=== PATIENT | female | born 1940 | race Two or more races ===

== ENCOUNTER 2024-02-23 09:37 | Inpatient (IN) | payer OTHER ==
[~2024-02-23] VITALS: Ht 152.4 cm; Wt 46.3 kg
--- NOTE | 2024-02-23 10:48 | ED.PDOC ---
History of Present Illness HPI Comments 83 y/o F is BIBA for c/o abdominal and generalized pain since 11/29/2023. Patient is a poor historian and endorses on having pain, chronically, since the beginning of November in addition to commenting on her "" at home being no longer capable of "caring for [her]." She reports no additional relevant or pertinent Hx, aside from a PMHx of HTN, CKF, MN, and former tobacco and EtOH. Denies having any nausea, vomiting, diarrhea, or other associated symptoms at this time. Chief Complaint: General Weakness Time Seen by MD: 10:15 Reviewed Notes: Nurses Notes, Office Manager Executive Assistant Notes, Medications, Allergies Allergies: Coded Allergies: NO KNOWN ALLERGIES (Unverified , 02/23/24) Information Source: Patient Mode of Arrival: EMS Severity: Moderate Timing: Hours Duration: Since onset Prehospital treatment: None Past Medical History PAST MEDICAL HISTORY: CKF, HTN, MN Surgical History: Cholecystectomy, Tonsillectomy DIRECTOR NETWORK DEVELOPMENT History: Denies all DIRECTOR NETWORK DEVELOPMENT Hx Family History Family History: Unknown Social History Smoker: Quit Greater Than 1 Year Alcohol: Sober Drugs: Denies Drug Use Lives In: Home, Assisted Care (by spouse) Constitutional: denies: chills, diaphoresis, fatigue, fever, malaise, sweats, weakness, others EENTM: denies: blurred vision, double vision, ear bleeding, ear discharge, ear drainage, ear pain, ear ringing, eye pain, eye redness, hearing loss, mouth pain, mouth swelling, nasal discharge, nose bleeding, nose congestion, nose pain, photophobia, tearing, throat pain, throat swelling, voice changes, others Respiratory: denies: cough, hemoptysis, orthopnea, SOB at rest, shortness of b reath, SOB with excertion, stridor, wheezing, others Cardiovascular: denies: chest pain, dizzy spells, diaphoresis, Dyspnea on exertion, edema, irregular heart beat, left arm pain, lightheadedness, palpitations, PND, syncope, others Gastrointestinal: reports: abdominal pain; denies: abdomen distended, blood streaked bowels, constipated, diarrhea, dysphagia, difficulty swallowing, hematemesis, melena, nausea, poor appetite, poor fluid intake, rectal bleeding, rectal pain, vomiting, others Genitourinary: denies: abnormal vagina bleeding, burning, dyspareunia, dysuria, flank pain, frequency, hematuria, incontinence, pain, , vagina discharge, urgency, others Neurological: denies: dizziness, fainting, headache, left sided numbness, left sided weakness, numbness, paresthesia, pre-existing deficit, right sided numbness, right sided weakness, seizure, speech problems, tingling, tremors, weakness, others Musculoskeletal: reports: others (generalized bodypain ); denies: back pain, gout, joint pain, joint swelling, muscle pain, muscle stiffness, neck pain Integumetry: denies: bruises, change in color, change in hair/nails, dryness, laceration, lesions, lumps, rash, wounds, others Allergic/Immunocompromised: denies: Difficulty Healing, Frequent Infections, Hives, Itching, others Hematologic/Lymphatic: denies: anemia, blood clots, easy bleeding, easy bruising, swollen glands, others Endocrine: denies: excessive hunger, excessive sweating, excessive thirst, excessive urination, flushing, intolerance to cold, intolerance to heat, une xplained weight gain, unexplained weight loss, others Psychiatric: denies: anxiety, bipolar disorder, depression, hopeless, panic disorder, schizophrenia, sleepless, suicidal, others All Other Systems: Reviewed and Negative Physical Exam General Appearance: Moderate Distress HEENT: Pale Conjuntivae (L), Pale Conjuntivae (R), Pharynx Normal, TMs Normal Neck: Full Range of Motion, Non-Tender, Normal, Normal Inspection Respiratory: Chest Non-Tender, Lungs Clear, No Accessory Muscle Use, No Resp iratory Distress, Normal Breath Sounds Cardiovascular: No Edema, No JVD, No Murmur, No Gallop, Normal Peripheral Pulses, Regular Rate/Rhythm Breast Exam: Deferred Gastrointestinal: Diffuse, No Organomegaly, No Pulsatile Mass, Normal Bowel Sounds, Soft, Tenderness Genitalia: Deferred Pelvic: Deferred Rectal: Deferred Extremities: No calf tenderness, Normal capillary refill, Normal inspection, Normal range of motion, Non-tender, No pedal edema Musculoskeletal : Apperance: Normal Neurologic: Alert, key punch operator II-XII nml as Tested, Motor Weakness, Normal Affect, Normal Mood, No Sensory Deficits Cerebellar Function: Normal Reflexes: Normal Skin: Dry, Pallor, Warm Lymphatic: No Adenopathy Was a procedure done? Was a procedure done?: No Differential Dx Considerations may include: chronic pain syndrome, viral syndrome, electrolyte imbalance, gastritis, gastroenteritis, colitis, appendicitis, diverticulitis, acute abdomen X-Ray, Labs, Meds, VS Vital Signs Date Time Temp Pulse Resp B/P (MAP) Pulse Ox O2 Delivery O2 Flow Rate FiO2 02/23/24 13:20 72 16 98 Room Air* 0 21 02/23/24 12:30 98.6 72 18 99/44 (62) 98 98.6 02/23/24 09:38 96.7 67 15 109/76 (87) 96 Lab Test 02/23/24 13:36 02/23/24 12:29 Range/Units White Blood Count 8.3 4.4-10.8 10^3/uL Red Blood Count 5.50 H 4.0-5.20 10^6/uL Hemoglobin 12.8 12.2-16.2 g/dL Hematocrit 40.9 36.0-46.0 % Mean Corpuscular Volume 74.3 L 80.0-100.0 fL Mean Corpuscular Hemoglobin 23.2 L 28.0-32.0 pg Mean Corpuscular Hemoglobin Concent 31.2 L 32.0-36.0 g/dL Red Cell Distribution Width 19.8 H 11.8-14.3 % Platelet Count 383 140-450 10^3/uL Mean Platelet Volume 7.9 6.9-10.8 fL Neutrophils (%) (Auto) 82.6 H 37.0-80.0 % Lymphocytes (%) (Auto) 8.2 L 10.0-50.0 % Monocytes (%) (Auto) 7.8 0.0-12.0 % Eosinophils (%) (Auto) 0.7 0.0-7.0 % Basophils (%) (Auto) 0.7 0.0-2.0 % Neutrophils # (Auto) 6.9 1.6-8.6 10 ^3/uL Lymphocytes # (Auto) 0.7 0.4-5.4 10 ^3/uL Monocytes # (Auto) 0.6 0-1.3 10 ^3/uL Eosinophils # (Auto) 0.1 0-0.8 10 ^3/uL Basophils # (Auto) 0.1 0-0.2 10 ^3/uL Nucleated Red Blood Cells 0.1 % Sodium Level 141 136-145 mmol/L Potassium Level 3.4 L 3.5-5.1 mmol/L Chloride Level 100 98-107 mmol/L Carbon Dioxide Level 28 20-31 mmol/L Anion Gap 13 5-15 Blood Urea Nitrogen 30 H 9-23 mg/dL Creatinine 0.71 0.550-1.02 mg/dL Glomerular Filtration Rate Calc 83 >90 mL/min BUN/Creatinine Ratio 42.3 H 10.0-20.0 Serum Glucose 127 H 74-106 mg/dL Calcium Level 10.1 8.7-10.4 mg/dL Total Bilirubin 0.4 0.2-1.0 mg/dL Aspartate Amino Transferase (AST) 76 H 13-40 U/L Alanine Aminotransferase (ALT) 35 7-40 U/L Alkaline Phosphatase 923 H 46-116 U/L Total Protein 6.7 5.7-8.2 g/dL Albumin 4.2 3.2-4.8 g/dL PROCEDURE(s): ABPL - CT AB PEL WO CON-NO ORAL OR IV IMPRESSION: 1. Nodular soft tissue densities along the right and left posterior bladder wall most notably along the right posterolateral bladder wall measuring 2.2 x 1.8 cm. Findings are concerning for primary bladder malignancy. Correlation with cystoscopy and biopsy is recommended. 2. 9.0 x 7.2 cm soft tissue mass involving the right acetabulum and right ischium with cortical destruction. There is also compression deformity of the L4 vertebral body with cortical destruction. These likely relate to osseous metastatic disease with pathologic fractures. The patient was chemistry panel is within normal limits. The patient's CBC is within normal limits The chemistry panel is within normal limits except for BUN of 30 and a creatini ne of 0.71 The patient was hyperglycemic with 127 We reviewed the patient's findings on the CT scan and the patient does not have a history of bladder cancer in the past. There is a concern that this is metastatic cancer. We are giving the patient has some normal saline to address the patient's blood pressure We did contact [facility] and they have given us authorization to admit the patient is secondary to the fluctuant blood pressure The authorization #[id number] Images Reviewed?: Images reviewed and evaluated by me Time of 1ST Reevaluation: 10:45 Reevaluation 1ST: Unchanged Patient Education/Counseling: Diagnosis, Treatment, Prognosis Family Education/Counseling: No Family Present Departure 1 Departure Time of Disposition: 14:49 Impression: Primary Impression: Generalized weakness Additional Impressions: Hypotension Qualified Codes: I95.9 - Hypotension, unspecified Bladder mass Disposition: ADMITTED INPATIENT Admit to: Tele Condition: Fair Critical Care Note Critical Care Time?: Yes (45 min-critical care time only) Stability Stability form required: Yes Unstable for transfer: Telemetry monitoring (Telemetry monitoring required), ED Physician Assesment (Clinical assesment) Heart Score Heart Score: Heart Score Response (Comments) Value History Moderate Suspicious 1 EKG N/A 0 Age >65 2 Risk Factors >3 or Hx ASHD 2 Troponin N/A 0 Total 5 I personally scribed for LOGAN NEGRETE MD ([email or web address]) on 02/23/24 at 10:48. Electronically submitted by Oscar Lee ([email or web address]). I personally scribed for LOGAN NERGETE MD ([email or web address]) on 02/23/24 at 12:46. Electronically submitted by Oscar Lee ([email or web address]). LOGAN NEGRETE MD Feb 23, 2024 10:48
--- NOTE | 2024-02-23 11:05 | DVH ---
CT ABDOMEN AND PELVIS WITHOUT CONTRAST CLINICAL HISTORY: pain TECHNIQUE: Multiple contiguous axial images of the abdomen and pelvis without intravenous contrast. The images were reformatted degenerate coronal and sagittal reconstructions. All CT scans at this medical facility are performed using dose modulation techniques as appropriate t o a performed exam including the following:Automated exposure control was utilized; adjustment of the MA and/or KV according to patient size; and use of iterative reconstruction technique. Radiation Dose Information: CT Dose: CTDI volume is 5 mGy. Dose-length product is 234 mGy*cm Comparison: None FINDINGS: Evaluation of the abdomen and pelvis is limited without intravenous contrast. Gallbladder is surgically absent. There is a 1.4 cm right hepatic lobe cysts. The pancreas, kidne ys, adrenal glands, and spleen grossly appear within normal limits. There is no free fluid or free ai r. The stomach grossly appears unremarkable. The small and large bowel loops demonstrate normal caliber . There are moderate calcified atherosclerotic changes in the abdominal aorta. The IVC appears within normal limits. There are nodular soft tissue densities along the right and left posterior bladder wall with thin per ipheral wall calcification. Soft tissue nodule in the right posterolateral bladder wall is most notab le measuring 2.2 x 1.8 cm. The uterus is heterogeneous with likely calcified fibroids.. There is no gross evidence of a pelvic mass. There is no free fluid collection. There are emphysematous changes in the lung bases. There is an approximately 9.0 x 7.2 cm soft tissue mass involving the right acetabulum and right isch ium with cortical destruction. There is also compression deformity of the L4 vertebral body with daniella ical destruction. There is chronic wedge compression deformity of the T12 vertebral body. IMPRESSION: 1. Nodular soft tissue densities along the right and left posterior bladder wall most notably along t he right posterolateral bladder wall measuring 2.2 x 1.8 cm. Findings are concerning for primary blad saadia malignancy. Correlation with cystoscopy and biopsy is recommended. 2. 9.0 x 7.2 cm soft tissue mass involving the right acetabulum and right ischium with cortical destr uction. There is also compression deformity of the L4 vertebral body with cortical destruction. These likely relate to osseous metastatic disease with pathologic fractures. HS:Y
[2024-02-23 13:18] LABS: Alanine Aminotransferase 35 U/L (7-40); Albumin 4.2 g/dL (3.2-4.8); Anion Gap 13 (5-15); BUN/Creatinine Ratio 42.3 (10.0-20.0); Calcium 10.1 mg/dL (8.7-10.4); Carbon Dioxide 28 mmol/L (20-31); Chloride 100 mmol/L (98-107); Sodium 141 mmol/L (136-145)
[2024-02-23 13:19] LABS: Bilirubin, Total 0.4 mg/dL (0.2-1.0); Total Protein 6.7 g/dL (5.7-8.2)
[2024-02-23 13:20] VITALS: PULSE 72; RESP 16; O2SAT 98
[2024-02-23 13:20] LABS: Alkaline Phosphatase 923 U/L (46-116); Aspartate Aminotransferase 76 U/L (13-40); Blood Urea Nitrogen 30 mg/dL (9-23); Glucose 127 mg/dL (74-106); Potassium 3.4 mmol/L (3.5-5.1)
[2024-02-23 13:55] LABS: Basophils # (auto) 0.1 10 ^3/uL (0-0.2); Basophils % (auto) 0.7 % (0.0-2.0); Lymphocytes # (auto) 0.7 10 ^3/uL (0.4-5.4)
[2024-02-23 13:57] LABS: Eosinophils # (auto) 0.1 10 ^3/uL (0-0.8); Eosinophils % (auto) 0.7 % (0.0-7.0); Hematocrit 40.9 % (36.0-46.0); Hemoglobin 12.8 g/dL (12.2-16.2); Lymphocytes % (auto) 8.2 % (10.0-50.0); Mean Corpuscular Hemoglobin 23.2 pg (28.0-32.0); Mean Corpuscular Hgb Conc. 31.2 g/dL (32.0-36.0); Mean Corpuscular Volume 74.3 fL (80.0-100.0); Monocytes # (auto) 0.6 10 ^3/uL (0-1.3); Monocytes % (auto) 7.8 % (0.0-12.0); Neutrophils # (auto) 6.9 10 ^3/uL (1.6-8.6); Neutrophils % (auto) 82.6 % (37.0-80.0); Nucleated Red Blood Cells % 0.1 %; Platelet Count (auto) 383 10^3/uL (140-450); Red Cell Distribution Width 19.8 % (11.8-14.3); White Blood Cell 8.3 10^3/uL (4.4-10.8)
[2024-02-23] MEDS: SODIUM CHLORIDE 0.9% 1,000 ML IV ONE (14:56)
[2024-02-23] MEDS ORDERED: MORPHINE SULFATE INJ 2 MG/ml SYRG IV PRN (17:00)
[2024-02-23] MEDS ORDERED: NITROGLYCERIN 0.4 MG SL TAB SL PRN (17:00)
[2024-02-23] MEDS ORDERED: DOCUSATE SOD 100 MG CAP PO PRN (17:00)
[2024-02-23] MEDS ORDERED: ONDANSETRON HCL 4 MG/2 ML VIAL IV PRN (17:00)
[2024-02-23] MEDS ORDERED: ACETAMINOPHEN 325 MG TAB PO PRN (17:00)
[2024-02-23] MEDS ORDERED: MET25T PO (17:28)
[2024-02-23] MEDS ORDERED: SERT25TA28 PO (17:28)
[2024-02-23] MEDS ORDERED: LISI40TA16 PO (17:28)
[2024-02-23] MEDS ORDERED: SIMV40TA18 PO (17:28)
[2024-02-23] MEDS ORDERED: FURO20TA4 PO (17:28)
[2024-02-23] MEDS ORDERED: GAB100C PO (17:28)
[2024-02-23] MEDS: POTASSIUM EFFERVESENT TAB 25 MEQ PO ONE (17:38)
[2024-02-23] MEDS: SODIUM CHLORIDE 0.9% 1,000 ML IV SCH (17:39)
--- NOTE | 2024-02-23 17:39 | DVHHP2 ---
History of Present Illness Reason for Visit: Weakness History of Present Illness Martha Jimenez is a 83-year-old female with past medical history of hypertension, CKD, HI over 15 years ago, skin cancer on her left leg that was removed 2 years ago, cholecystectomy, and tonsillectomy who presents to the ED for generalized weakness. Patient reports that that she is unable to walk and that she has progressively gotten weaker over the last several months. She also reports that she was seeing her primary and they advised her to come into the ER for evaluation. Patient also reports that she has not been voiding for the last 2 days and she has not been drinking any fluids. Patient also reports that she had an oncologist at [facility] but no longer seeing one. Patient denies any fevers, chills, chest pain, shortness of breath, nausea, vomiting, diarrhea, lightheadedness, dizziness, and shortness of reath. Cardiovascular: HTN, HI Renal/: Chronic renal failure Past Medical History CA Past Surgical History: Cholecystectomy, Tonsillectomy Family History: None Smoke: Quit ALCOHOL: none Drugs: None Lives: with Family Domestic Violence: Neg Review of Systems Constitutional: Yes: Weakness; No: Fever, Chills, Sweats, Malaise, Other Eyes: No: Pain, Vision change, Conjunctivae inflammation, Eyelid inflammation, Other, Redness Respiratory: No: Cough, Dry, Shortness of breath, SOB with excertion, Wheezing, Hemoptysis, Pleuritic Pain, Sputum, Wheezing, Other Cardiovascular: No: Chest Pain, Palpitations, Orthopnea, Paroxysmal Noc. Dyspnea, Edema, Lt Headedness, Other Gastrointestinal: No: Nausea, Vomiting, Abdominal Pain, Diarrhea, Constipation, Melena, Hematochezia, Other Genitourinary: No Dysuria, No Frequency, No Incontinence, No Hematuria; Retention; No Other Skin: Bruising; No: Rash, Lesions, Jaundice, Other Neurological: No: Weakness, Numbness, Incoordination, Change in speech, Confusion, Seizures, Other Allergies: Coded Allergies: NO KNOWN ALLERGIES (Unverified , 02/23/24) Exam Vital Signs Vital Signs Date Time Temp Pulse Resp B/P (MAP) Pulse Ox O2 Delivery O2 Flow Rate FiO2 02/23/24 14:42 59 16 120/58 (78) 98 02/23/24 13:20 Room Air* 0 21 02/23/24 12:30 98.6 98.6 General Appearance: Alert, Oriented X3, Cooperative, No acute distress HEENT: Atraumatic, PERRLA, Mucous membr. moist/pink Respiratory: Clear to auscultation, Normal air movement Cardiovascular: Regular rate, Normal S1, Normal S2, No murmurs Abdominal: Normal bowel sounds, Soft, No tenderness, No hepatospenomegaly, No masses Extremities: No clubbing, No cyanosis, No edema, Normal pulses, No tenderness/swelling Skin: No breakdown Neuro: Normal speech, Normal tone, Sensation intact Psych/Mental Status: Mental status NL, Mood NL Labs/Xrays Labs Test 02/23/24 13:36 02/23/24 12:29 Range/Units White Blood Count 8.3 4.4-10.8 10^3/uL Red Blood Count 5.50 H 4.0-5.20 10^6/uL Hemoglobin 12.8 12.2-16.2 g/dL Hematocrit 40.9 36.0-46.0 % Mean Corpuscular Volume 74.3 L 80.0-100.0 fL Mean Corpuscular Hemoglobin 23.2 L 28.0-32.0 pg Mean Corpuscular Hemoglobin Concent 31.2 L 32.0-36.0 g/dL Red Cell Distribution Width 19.8 H 11.8-14.3 % Platelet Count 383 140-450 10^3/uL Mean Platelet Volume 7.9 6.9-10.8 fL Neutrophils (%) (Auto) 82.6 H 37.0-80.0 % Lymphocytes (%) (Auto) 8.2 L 10.0-50.0 % Monocytes (%) (Auto) 7.8 0.0-12.0 % Eosinophils (%) (Auto) 0.7 0.0-7.0 % Basophils (%) (Auto) 0.7 0.0-2.0 % Neutrophils # (Auto) 6.9 1.6-8.6 10 ^3/uL Lymphocytes # (Auto) 0.7 0.4-5.4 10 ^3/uL Monocytes # (Auto) 0.6 0-1.3 10 ^3/uL Eosinophils # (Auto) 0.1 0-0.8 10 ^3/uL Basophils # (Auto) 0.1 0-0.2 10 ^3/uL Nucleated Red Blood Cells 0.1 % Sodium Level 141 136-145 mmol/L Potassium Level 3.4 L 3.5-5.1 mmol/L Chloride Level 100 98-107 mmol/L Carbon Dioxide Level 28 20-31 mmol/L Anion Gap 13 5-15 Blood Urea Nitrogen 30 H 9-23 mg/dL Creatinine 0.71 0.550-1.02 mg/dL Glomerular Filtration Rate Calc 83 >90 mL/min BUN/Creatinine Ratio 42.3 H 10.0-20.0 Serum Glucose 127 H 74-106 mg/dL Calcium Level 10.1 8.7-10.4 mg/dL Total Bilirubin 0.4 0.2-1.0 mg/dL Aspartate Amino Transferase (AST) 76 H 13-40 U/L Alanine Aminotransferase (ALT) 35 7-40 U/L Alkaline Phosphatase 923 H 46-116 U/L Total Protein 6.7 5.7-8.2 g/dL Albumin 4.2 3.2-4.8 g/dL CT ABDOMEN AND PELVIS WITHOUT CONTRAST CLINICAL HISTORY: pain TECHNIQUE: Multiple contiguous axial images of the abdomen and pelvis without intravenous contrast. The images were reformatted degenerate coronal and sagittal reconstructions. All CT scans at this medical facility are performed using dose modulation techniques as appropriate to a performed exam including the following:Automated exposure control was utilized; adjustment of the MA and/or KV according to patient size; and use of iterative reconstruction technique. Radiation Dose Information: CT Dose: CTDI volume is 5 mGy. Dose-length product is 234 mGy*cm Comparison: None FINDINGS: Evaluation of the abdomen and pelvis is limited without intravenous contrast. Gallbladder is surgically absent. There is a 1.4 cm right hepatic lobe cysts. The pancreas, kidneys, adrenal glands, and spleen grossly appear within normal limits. There is no free fluid or free air. The stomach grossly appears unremarkable. The small and large bowel loops demonstrate normal caliber. There are moderate calcified atherosclerotic changes in the abdominal aorta. The IVC appears within normal limits. There are nodular soft tissue densities along the right and left posterior bladder wall with thin peripheral wall calcification. Soft tissue nodule in the right posterolateral bladder wall is most notable measuring 2.2 x 1.8 cm. The uterus is heterogeneous with likely calcified fibroids.. There is no gross evidence of a pelvic mass. There is no free fluid collection. There are emphysematous changes in the lung bases. There is an approximately 9.0 x 7.2 cm soft tissue mass involving the right acetabulum and right ischium with cortical destruction. There is also compression deformity of the L4 vertebral body with cortical destruction. There is chronic wedge compression deformity of the T12 vertebral body. IMPRESSION: 1. Nodular soft tissue densities along the right and left posterior bladder wall most notably along the right posterolateral bladder wall measuring 2.2 x 1.8 cm. Findings are concerning for primary bladder malignancy. Correlation with cystoscopy and biopsy is recommended. 2. 9.0 x 7.2 cm soft tissue mass involving the right acetabulum and right ischium with cortical destruction. There is also compression deformity of the L4 vertebral body with cortical destruction. These likely relate to osseous metastatic disease with pathologic fractures. Assessment/Plan Assessment/Plan Assessment/Plan: Acute generalized weakness suspected metastatic disease to be ruled out Abd US Alcohol level sanchez cath - urinary retention acute hepatitis panel CEA marker CT A/P UA labs am labs antiemetics pain mgmt renal US Hypokalemia replete lytes labs elevated AST and ALP GI cx Nodular soft tissue densities along the right and left posterior bladder wall most notably along the right posterolateral bladder wall measuring 2.2 x 1.8 cm. Urology cx 9.0 x 7.2 cm soft tissue mass involving the right acetabulum and right ischium with cortical destruction. There is also compression deformity of the L4 vertebral body with cortical destruction. Oncology cx outpatient F/U with [facility] Chronic HTN continue home meds Chronic CKD monitor continue home meds Hx of HI monitor on tele FEN/PPX Diet IVf DVT ppx - lovenox PUD ppx - not indicated no history of GERD or GI bleed Admit to tele Home medications reconciled Discussed plan of care with patient and nurse Plan discussed with: Patient My Orders Orders - LYSSA TEJEDA PERSONAL LINES ADVISOR Procedure Category Date Status Time * Hematology/Oncology CONS 02/23/24 Transmitted Consult 16:48 * Urology Consult CONS 02/23/24 Transmitted 16:48 * Gi [facility] Dramatic Arts Historian CONS 02/23/24 Transmitted 16:48 Carcinoembryonic LAB 02/23/24 Logged Antigen 16:48 Acute Hepatitis Panel LAB 02/23/24 Logged 16:48 Blood Alcohol LAB 02/23/24 Logged 16:48 Drug Screen LAB 02/23/24 Logged 16:48 Insert/Manage Urinary LUANNE 02/23/24 In Process Catheter 16:48 Abdomen Complete US 02/23/24 Logged Sonogram 16:48 Admit ADMIT 02/23/24 Transmitted 16:53 Allergies LUANNE 02/23/24 In Process 16:53 Code Status CODE 02/23/24 Transmitted 16:53 Renal DIET 02/23/24 Transmitted Standard(2gna,3gk,Lopho) Dinner Sodium Chloride 0.9% PHA 02/23/24 Logged 17:00 Hydrocodone-Acet PHA 02/23/24 Logged 5/325mg Tab ([place] 17:00 Ondansetron Hcl PHA 02/23/24 Logged (Zofran) 17:00 Docusate Sodium PHA 02/23/24 Logged Capsule (Colace 17:00 Enoxaparin Sodium PHA 02/24/24 Logged (Lovenox) 10:00 Complete Blood Count LAB 02/24/24 Verified 04:00 Comprehensive LAB 02/24/24 Verified Metabolic Panel 04:00 Acetaminophen Tablet PHA 02/23/24 Logged (Tylenol Tablet) 17:00 Nitroglycerin PHA 02/23/24 Logged Sublingual (Ntrostat 17:00 Morphine Sulfate PHA 02/23/24 Logged Injection 17:00 Stat Ekg For Chest [facility] 02/23/24 In Process Pain 16:53 Notify Of Changes [facility] 02/23/24 In Process From Base 16:53 Field Counsel For [facility] 02/23/24 In Process 24 Hours 16:53 Emergency Dysrhythmia [facility] 02/23/24 In Process Protocol 16:53 Rhythm Strips Once [facility] 02/23/24 In Process Every Shift 16:53 Oxygen By Nasal RT 02/23/24 Transmitted Cannula 16:53 Potassium Effervesent PHA 02/23/24 Logged Tab (Klor-Con/Ef) 17:00 Date of Service: Feb 23, 2024 Billing Provider: LYSSA TEJEDA Common Visit Codes: 21984-RIWHKYR INP/OBS CARE (MOD) LYSSA TEJEDA Feb 23, 2024 17:39
--- NOTE | 2024-02-23 18:16 | DVH ---
US KIDNEY HISTORY: NODULAR SOFT TISSUE DENSITIES SEEN ON BLADDER COMPARISON: Abdomen and pelvis 02/03/2024 TECHNIQUE: Transverse and longitudinal grayscale and color Doppler images were obtained of the kidney s and bladder. FINDINGS: Right kidney: Right kidney measures 7.7 cm in length. No hydronephrosis or renal calculi. Normal cortical thickness and echogenicity. Left kidney: The lower pole of the left kidney is obscured by bowel gas with the left kidney measuring about 8.7 c m in length. No hydronephrosis or renal calculi. Normal cortical thickness and echogenicity. Bladder: There is heterogeneous structure with possible septation and calcification over the posterior urinary bladder. Urinary bladder volume of 634 cc. Postvoid volume not evaluated as patient declined urge t o void. IMPRESSION: The left kidney is partially visualized. Mild atrophy of bilateral kidneys. Otherwise, the kidneys un remarkable. Posterior urinary bladder mass measuring up to 6.1 cm. Urinary bladder volume of 634 cc.
[2024-02-23 18:19] VITALS: BP 141/73; PULSE 68; RESP 14; RESP 15; TEMP 97.4; O2SAT 98
[2024-02-23 20:00] VITALS: PULSE 66; PULSE 68; RESP 18; O2SAT 93
[2024-02-23 21:00] VITALS: BP 147/70; PULSE 66; RESP 18; TEMP 97.9; O2SAT 93
[2024-02-24] MEDS: HYDROcodone-ACET 5/325MG TAB PO PRN (01:09)
[2024-02-24 01:11] VITALS: BP 172/63; PULSE 66; RESP 16; TEMP 98; O2SAT 93
[2024-02-24 05:00] VITALS: BP 162/62; PULSE 73; RESP 73; TEMP 98; O2SAT 18
[2024-02-24 08:00] VITALS: PULSE 67
[2024-02-24] MEDS: LISINOPRIL 20 MG TAB PO SCH (08:20)
[2024-02-24] MEDS: METOPROLOL TARTRATE 25 MG TAB PO SCH (08:20)
[2024-02-24] MEDS: ENOXAPARIN SOD 40 MG/0.4 ML SYRINGE SC SCH (08:21)
[2024-02-24 09:00] VITALS: BP 186/78; PULSE 67; RESP 20; TEMP 97.6; O2SAT 94
--- NOTE | 2024-02-24 10:26 | DVHPN2 ---
Progress Note Date Seen: Feb 24, 2024 Medical Necessity Reason Pt with a Central, PICC or Fol: No Subjective Patient reports: No new complaints Review of Systems: HEENT:Normal, CVS:Normal, RESPIRATORY:Normal, GI:Normal, :Normal, MSK:Normal, NEURO:Normal Objective vital signs Vital Sign Date Time Temp Pulse Resp B/P (MAP) Pulse Ox O2 Delivery O2 Flow Rate FiO2 02/24/24 09:00 97.6 67 20 186/78 (114) 94 97.6 02/23/24 20:00 Room Air* 0 21 Total Intake and Output 02/23/24 02/23/24 02/24/24 15:00 23:00 07:00 Intake Total 100 ml Balance 100 ml medications Current Medications Medications Dose Ordered Sig/Johanna Route Start Time Stop Time Status Last Admin Dose Admin Sodium Chloride 1,000 ml @ 70 mls/hr [id number] IV 02/23/24 17:00 02/24/24 07:18 70 MLS/HR Acetaminophen/ Hydrocodone Bitart 1 tab Q4HP PRN PO 02/23/24 17:00 02/24/24 01:09 1 TAB Ondansetron HCl 4 mg Q4HP PRN IV 02/23/24 17:00 Docusate Sodium 100 mg BIDPRN PRN PO 02/23/24 17:00 Enoxaparin Sodium 40 mg DAILY SC 02/24/24 10:00 Acetaminophen 650 mg Q6HP PRN PO 02/23/24 17:00 Nitroglycerin 0.4 mg Q5MINP PRN SL 02/23/24 17:00 Morphine Sulfate 2 mg Q30M PRN IV 02/23/24 17:00 Metoprolol Tartrate 25 mg DAILY PO 02/24/24 10:00 02/24/24 08:20 25 MG Lisinopril 40 mg DAILY PO 02/24/24 10:00 02/24/24 08:20 40 MG Dexamethasone Sodium Phosphate 4 mg BID IV 02/24/24 22:00 UNV Morphine Sulfate 15 mg Q12HR PO 02/24/24 22:00 UNV Examination: GENERAL:Normal, HEENT:Normal, NECK:Normal, LUNGS:Normal, CVS:Normal, ABDOMEN:Normal, MSK:Normal, SKIN:Normal, NEURO:Normal, NEURO:Abnormal (paraplegia, decreased sensation right leg), :Normal laboratory and microbiology Laboratory Tests 02/23/24 13:36 02/23/24 12:29 Test 02/23/24 12:29 Range/Units Serum Glucose 127 H 74-106 mg/dL Problem List/Assessment/Plan Problem List/Assessment/Plan #1 bladder tumor: sanchez cath #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/L4 compression: decadron #3 htn #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 #5 cad advance care planning- hospice care- time spent 22 mins Plan discussed with: Patient, Spouse My Orders My Orders Orders - SOFIA DUNN MD Procedure Category Date Status Time * Rn International CONS 02/24/24 Transmitted Consult Dexamethasone PHA 02/24/24 Transmitted Injection (Decadron 10:30 Dexamethasone PHA 02/24/24 Transmitted Injection (Decadron 22:00 Insert/Manage Urinary LUANNE 02/24/24 In Process Catheter 10:16 Urinalysis LAB 02/24/24 Uncollected 10:16 Morphine Extended PHA 02/24/24 Transmitted Release Tab (Oramorph 10:30 Morphine Extended PHA 02/24/24 Transmitted Release Tab (Oramorph 22:00 Basic Metabolic Panel LAB 02/25/24 Verified 06:00 Complete Blood Count LAB 02/25/24 Verified 06:00 Date of Service: Feb 24, 2024 Billing Provider: SOFIA DUNN MD Common Visit Codes: [id number] INP/OBS CARE(HIGH) Secondary Visit Codes: [id number] CARE PLAN 30 MINUTES SOFIA DUNN MD Feb 24, 2024 10:26
[2024-02-24] MEDS: DexAMETHasone SOD PHOS 4 MG/1ML SDV INJ IV ONE (10:52)
[2024-02-24] MEDS: PANTOPRAZOLE 40 MG TAB PO ONE (10:52)
[2024-02-24] MEDS: MORPHINE SULF 15mg ER tab PO ONE (10:52)
[2024-02-24 11:55] LABS: Urine Bacteria None Seen /hpf (None Seen); Urine WBC None Seen /hpf (0 - 5)
[2024-02-24 12:23] LABS: Alanine Aminotransferase 34 U/L (7-40); Anion Gap 8 (5-15); BUN/Creatinine Ratio 42.9 (10.0-20.0); Calcium 9.9 mg/dL (8.7-10.4); Carbon Dioxide 28 mmol/L (20-31); Chloride 104 mmol/L (98-107); Glucose 97 mg/dL (74-106); Potassium 3.8 mmol/L (3.5-5.1); Sodium 140 mmol/L (136-145)
[2024-02-24 12:24] LABS: Bilirubin, Total 0.4 mg/dL (0.2-1.0); Total Protein 6.4 g/dL (5.7-8.2)
[2024-02-24 12:25] LABS: Urine Blood 2+ /uL (Negative); Urine Clarity Ex.Turbid (Clear); Urine Color Brown (Yellow); Urine Protein, UAD 1+ (Negative); Urine Specific Gravity 1.015 (1.001-1.035); Urine Squamous Epithelial Cell None Seen /hpf (<5); Urine Urobilinogen Normal (Negative); Urine pH 7.5 (5.0-9.0)
[2024-02-24 12:25] LABS: Alkaline Phosphatase 901 U/L (46-116); Aspartate Aminotransferase 69 U/L (13-40); Blood Urea Nitrogen 27 mg/dL (9-23)
[2024-02-24 12:44] LABS: Amphetamine Screen, Urine Neg (NEGATIVE); Barbiturate Scree,Urine Neg (NEGATIVE); Benzodiazephine Screen, Urine Neg (NEGATIVE); Cannabinoid Screen, Urine Neg (NEGATIVE); Cocaine Screen, Urine Neg (NEGATIVE); Opiate Scree,Urine Pos (NEGATIVE); Phencyclidine Screen, Urine Neg (NEGATIVE)
[2024-02-24 13:00] VITALS: BP 163/73; PULSE 61; RESP 22; TEMP 96.2; O2SAT 98
--- NOTE | 2024-02-24 14:25 | DVHINCON2 ---
Date of service: Feb 24, 2024 Referring Physician hospitalist Reason for Consultation bladder mass History of Present Illness History Source: Patient, MD Notes Exam Limitations: No limitations HPI 83 y/o F is BIBA for c/o abdominal and generalized pain since 11/29/2023. Patient is a poor historian and endorses on having pain, chronically, since the beginning of November in addition to commenting on her "" at home being no longer capable of "caring for [her]." She reports no additional relevant or pertinent Hx, aside from a PMHx of HTN, CKF, VT, and former tobacco and EtOH. Denies having any nausea, vomiting, diarrhea, or other associated symptoms at this time. Home Meds Reported Medications Sertraline Hcl (Sertraline Hcl) 25 Mg Tab, 1 TAB PO DAILY 02/23/24 Simvastatin (Simvastatin) 40 Mg Tab, 1 TAB PO 02/23/24 Lisinopril (Lisinopril) 40 Mg Tab, 1 TAB PO DAILY 02/23/24 Metoprolol Tartrate (Lopressor) 25 Mg Tb, 1 TAB PO DAILY 02/23/24 Gabapentin (Gabapentin) 100 Mg Cap, CAP PO 02/23/24 Furosemide (Furosemide) 20 Mg Tab, 1 TAB PO DAILY 02/23/24 Past Medical History Central Nervous System: CVA Hemotology/Oncology: Cancer Patient Family History: No significant family history Review of Systems Gastrointestinal: Abdominal Pain H&P Exam Vital Signs Vital Signs Date Time Temp Pulse Resp B/P (MAP) Pulse Ox O2 Delivery O2 Flow Rate FiO2 02/24/24 13:00 96.2 61 22 163/73 (103) 98 96.2 02/24/24 08:00 Room Air* 0 21 General Appeara: Well developed, Well nourished, Normal Appearance Labs/Xrays [place] [address] Ph: [phone] DIAGNOSTIC IMAGING Diagnostic Imaging Report : [id number] Signed PATIENT: CORY CLEMENTSACCT: [id number] UNIT: [id number] : 1940 LOC: [facility] ROOM / BED: [facility] / A AGE / SEX: 83 / F ADM STATUS: ADM IN SERVICE 0000 ORDERING PHYSICIAN: THON,SALINA K [employer] AGENT PROCEDURE(s): KIDUS - KIDNEY REASON: NODULAR SOFT TISSUE DENSITIES SEEN ON BLADDER ORDER NUMBER(s): [id number], ACCESSION NUMBER(s): [id number] US KIDNEY HISTORY: NODULAR SOFT TISSUE DENSITIES SEEN ON BLADDER COMPARISON: Abdomen and pelvis 02/03/2024 TECHNIQUE: Transverse and longitudinal grayscale and color Doppler images were obtained of the kidneys and bladder. FINDINGS: Right kidney: Right kidney measures 7.7 cm in length. No hydronephrosis or renal calculi. Normal cortical thickness and echogenicity. Left kidney: The lower pole of the left kidney is obscured by bowel gas with the left kidney measuring about 8.7 cm in length. No hydronephrosis or renal calculi. Normal cortical thickness and echogenicity. Bladder: There is heterogeneous structure with possible septation and calcification over the posterior urinary bladder. Urinary bladder volume of 634 cc. Postvoid volume not evaluated as patient declined urge to void. IMPRESSION: The left kidney is partially visualized. Mild atrophy of bilateral kidneys. Otherwise, the kidneys unremarkable. Posterior urinary bladder mass measuring up to 6.1 cm. Urinary bladder volume of 634 cc. ATED BY: PIEDAD BENOIT DO DICTATED DATE/TIME: 02/23/241813 SIGNED BY: PIEDAD BENOIT DO SIGNED DATE/TIME: 02/23/241813 CC: [place] [address] Ph: [phone] DIAGNOSTIC IMAGING Diagnostic Imaging Report : [id number] Signed PATIENT: CORY CLEMENTSACCT: [id number] UNIT: [id number] : 1940 LOC: ER ROOM / BED: / AGE / SEX: 83 / F ADM STATUS: REG ER SERVICE 1019 ORDERING PHYSICIAN: LOGAN NEGRETE MD PROCEDURE(s): ABPL - CT AB PEL WO CON-NO ORAL OR IV REASON: pain ORDER NUMBER(s): [id number], ACCESSION NUMBER(s): [id number] CT ABDOMEN AND PELVIS WITHOUT CONTRAST CLINICAL HISTORY: pain TECHNIQUE: Multiple contiguous axial images of the abdomen and pelvis without intravenous contrast. The images were reformatted degenerate coronal and sagittal reconstructions. All CT scans at this medical facility are performed using dose modulation techniques as appropriate to a performed exam including the following:Automated exposure control was utilized; adjustment of the MA and/or KV according to patient size; and use of iterative reconstruction technique. Radiation Dose Information: CT Dose: CTDI volume is 5 mGy. Dose-length product is 234 mGy*cm Comparison: None FINDINGS: Evaluation of the abdomen and pelvis is limited without intravenous contrast. Gallbladder is surgically absent. There is a 1.4 cm right hepatic lobe cysts. The pancreas, kidneys, adrenal glands, and spleen grossly appear within normal limits. There is no free fluid or free air. The stomach grossly appears unremarkable. The small and large bowel loops demonstrate normal caliber. There are moderate calcified atherosclerotic changes in the abdominal aorta. The IVC appears within normal limits. There are nodular soft tissue densities along the right and left posterior bladder wall with thin peripheral wall calcification. Soft tissue nodule in the right posterolateral bladder wall is most notable measuring 2.2 x 1.8 cm. The uterus is heterogeneous with likely calcified fibroids.. There is no gross evidence of a pelvic mass. There is no free fluid collection. There are emphysematous changes in the lung bases. There is an approximately 9.0 x 7.2 cm soft tissue mass involving the right acetabulum and right ischium with cortical destruction. There is also compression deformity of the L4 vertebral body with cortical destruction. There is chronic wedge compression deformity of the T12 vertebral body. IMPRESSION: 1. Nodular soft tissue densities along the right and left posterior bladder wall most notably along the right posterolateral bladder wall measuring 2.2 x 1.8 cm. Findings are concerning for primary bladder malignancy. Correlation with cystoscopy and biopsy is recommended. 2. 9.0 x 7.2 cm soft tissue mass involving the right acetabulum and right ischium with cortical destruction. There is also compression deformity of the L4 vertebral body with cortical destruction. These likely relate to osseous metas tatic disease with pathologic fractures. HS:Y ATED BY: CHIDI LITTLE MD DICTATED DATE/TIME: 02/23/24 1103 SIGNED BY: CHIDI LITTLE MD SIGNED DATE/TIME: 02/23/24 110 CC: Labs Test 02/24/24 13:24 02/24/24 11:53 02/24/24 11:30 02/23/24 13:36 Range/Units Urine Color Brown H Yellow Urine Clarity Ex.turbid Clear Urine pH 7.5 5.0-9.0 Urine Specific [place] 1.015 1.001-1.035 Urine Protein 1+ H Negative Urine Ketones Negative Negative Urine Blood 2+ H Negative /uL Urine Nitrite Negative Negative Urine Bilirubin Negative Negative Urine Urobilinogen Normal Negative mg/dL Urine Leukocyte Esterase 1+ Negative /uL Urine RBC <1 0 - 4 /hpf Urine WBC None seen 0 - 5 /hpf Urine Squamous Epithelial Cells None seen <5 /hpf Urine Bacteria None seen None Seen /hpf Urine Glucose Normal Normal mg/dL Urine Opiates Screen Pos NEGATIVE Urine Fentanyl Screen Neg NEGATIVE Urine Barbiturates Screen Neg NEGATIVE Urine Phencyclidine Screen Neg NEGATIVE Urine Amphetamines Screen Neg NEGATIVE Urine Benzodiazepines Screen Neg NEGATIVE Urine Cocaine Screen Neg NEGATIVE Urine Cannabinoids Screen Neg NEGATIVE Sodium Level 140 136-145 mmol/L Potassium Level 3.8 3.5-5.1 mmol/L Chloride Level 104 98-107 mmol/L Carbon Dioxide Level 28 20-31 mmol/L Anion Gap 8 5-15 Blood Urea Nitrogen 27 H 9-23 mg/dL Creatinine 0.63 0.550-1.02 mg/dL Glomerular Filtration Rate Calc 87 >90 mL/min BUN/Creatinine Ratio 42.9 H 10.0-20.0 Serum Glucose 97 74-106 mg/dL Calcium Level 9.9 8.7-10.4 mg/dL Total Bilirubin 0.4 0.2-1.0 mg/dL Aspartate Amino Transferase (AST) 69 H 13-40 U/L Alanine Aminotransferase (ALT) 34 7-40 U/L Alkaline Phosphatase 901 H 46-116 U/L Total Protein 6.4 5.7-8.2 g/dL Albumin 4.0 3.2-4.8 g/dL Eosinophils (%) (Auto) 0.7 0.0-7.0 % Eosinophils # (Auto) 0.1 0-0.8 10 ^3/uL Basophils # (Auto) 0.1 0-0.2 10 ^3/uL Nucleated Red Blood Cells 0.1 % Carcinoembryonic Antigen 1.67 <=5.0 ng/mL Plasma/Serum Blood Alcohol 6.1 <10 mg/dL Assessment/Plan Problem List: (1) Generalized weakness (2) Hypotension (3) Bladder mass Plan supportive care hospice evaluation f/u with [facility] Plan discussed with: MIGUEL A Freeman NP Feb 24, 2024 14:25
[2024-02-24] MEDS ORDERED: cloNIDine HCL 0.1 MG TAB PO PRN (16:15)
[2024-02-24 16:31] LABS: Basophils # (auto) 0.1 10 ^3/uL (0-0.2); Basophils % (auto) 0.7 % (0.0-2.0); Eosinophils # (auto) 0 10 ^3/uL (0-0.8); Eosinophils % (auto) 0.2 % (0.0-7.0); Hematocrit 44.5 % (36.0-46.0); Hemoglobin 13.9 g/dL (12.2-16.2); Lymphocytes # (auto) 0.6 10 ^3/uL (0.4-5.4); Lymphocytes % (auto) 5.1 % (10.0-50.0); Mean Corpuscular Hemoglobin 23.1 pg (28.0-32.0); Mean Corpuscular Hgb Conc. 31.2 g/dL (32.0-36.0); Mean Corpuscular Volume 74.1 fL (80.0-100.0); Monocytes # (auto) 0.3 10 ^3/uL (0-1.3); Monocytes % (auto) 2.7 % (0.0-12.0); Neutrophils # (auto) 11.3 10 ^3/uL (1.6-8.6); Neutrophils % (auto) 91.3 % (37.0-80.0); Nucleated Red Blood Cells % 0.2 %; Platelet Count (auto) 273 10^3/uL (140-450); Red Cell Distribution Width 20.3 % (11.8-14.3); White Blood Cell 12.3 10^3/uL (4.4-10.8)
[2024-02-24 17:00] VITALS: BP 136/73; PULSE 75; RESP 18; TEMP 96.7
[2024-02-24 18:10] LABS: Platelet Estimate Adequate
[2024-02-24 18:11] LABS: Anisocytosis Slight; Hypochromia Moderate
[2024-02-24] MEDS: DexAMETHasone SOD PHOS 4 MG/1ML SDV INJ IV SCH (21:06)
[2024-02-24] MEDS: MORPHINE SULF 15mg ER tab PO SCH (21:11)
[2024-02-25] VITALS (8 sets, daily range): BP systolic 109–139; BP diastolic 53–81; PULSE 64–87; RESP 16–18; TEMP 97.5–98; O2SAT 92–100
[2024-02-25 06:07] LABS: Anion Gap 8 (5-15); Carbon Dioxide 26 mmol/L (20-31); Chloride 106 mmol/L (98-107); Potassium 4.1 mmol/L (3.5-5.1); Sodium 140 mmol/L (136-145)
[2024-02-25 06:08] LABS: Calcium 9.2 mg/dL (8.7-10.4)
[2024-02-25] MEDS: PANTOPRAZOLE 40 MG TAB PO SCH (06:10)
[2024-02-25 06:13] LABS: BUN/Creatinine Ratio 52.6 (10.0-20.0)
[2024-02-25 06:15] LABS: Blood Urea Nitrogen 30 mg/dL (9-23); Glucose 121 mg/dL (74-106)
[2024-02-25 06:25] LABS: Basophils # (auto) 0 10 ^3/uL (0-0.2); Eosinophils # (auto) 0 10 ^3/uL (0-0.8); Lymphocytes # (auto) 0.6 10 ^3/uL (0.4-5.4); Monocytes # (auto) 0.3 10 ^3/uL (0-1.3); Neutrophils # (auto) 8.1 10 ^3/uL (1.6-8.6)
[2024-02-25 06:30] LABS: Basophils % (auto) 0.2 % (0.0-2.0); Hematocrit 38.6 % (36.0-46.0); Lymphocytes % (auto) 6.4 % (10.0-50.0); Mean Corpuscular Hemoglobin 23.4 pg (28.0-32.0); Mean Corpuscular Hgb Conc. 31.2 g/dL (32.0-36.0); Mean Corpuscular Volume 75.1 fL (80.0-100.0); Monocytes % (auto) 3.8 % (0.0-12.0); Neutrophils % (auto) 89.6 % (37.0-80.0); Nucleated Red Blood Cells % 0.1 %; Platelet Count (auto) 297 10^3/uL (140-450); Red Blood Cells 5.14 10^6/uL (4.0-5.20); Red Cell Distribution Width 20.1 % (11.8-14.3)
[2024-02-25 09:28] LABS: Anisocytosis Slight; Hypochromia Moderate; Platelet Estimate Adequate
[2024-02-25 09:29] LABS: Ovalocytes FEW
--- NOTE | 2024-02-25 10:24 | DVHDS2 ---
Discharge Summary Date of Admission Feb 23, 2024 at 16:53 Date of Discharge: Feb 25, 2024 Admitting Diagnosis bladder tumor Labs/Diagnostic Data: Laboratory Results Test 02/25/24 05:07 02/24/24 11:53 02/24/24 11:30 02/23/24 13:36 White Blood Count 9.0 10^3/uL (4.4-10.8) Red Blood Count 5.14 10^6/uL (4.0-5.20) Hemoglobin 12.0 g/dL (12.2-16.2) Hematocrit 38.6 % (36.0-46.0) Mean Corpuscular Volume 75.1 fL (80.0-100.0) Mean Corpuscular Hemoglobin 23.4 pg (28.0-32.0) Mean Corpuscular Hemoglobin Concent 31.2 g/dL (32.0-36.0) Red Cell Distribution Width 20.1 % (11.8-14.3) Platelet Count 297 10^3/uL (140-450) Mean Platelet Volume 8.0 fL (6.9-10.8) Neutrophils (%) (Auto) 89.6 % (37.0-80.0) Lymphocytes (%) (Auto) 6.4 % (10.0-50.0) Monocytes (%) (Auto) 3.8 % (0.0-12.0) Eosinophils (%) (Auto) 0.0 % (0.0-7.0) Basophils (%) (Auto) 0.2 % (0.0-2.0) Neutrophils # (Auto) 8.1 10 ^3/uL (1.6-8.6) Lymphocytes # (Auto) 0.6 10 ^3/uL (0.4-5.4) Monocytes # (Auto) 0.3 10 ^3/uL (0-1.3) Eosinophils # (Auto) 0 10 ^3/uL (0-0.8) Basophils # (Auto) 0 10 ^3/uL (0-0.2) Nucleated Red Blood Cells 0.1 % Platelet Estimate Adequate Hypochromasia (manual) Moderate Anisocytosis (manual) Slight Microcytosis Slight Ovalocytes Few Sodium Level 140 mmol/L (136-145) Potassium Level 4.1 mmol/L (3.5-5.1) Chloride Level 106 mmol/L (98-107) Carbon Dioxide Level 26 mmol/L (20-31) Anion Gap 8 (5-15) Blood Urea Nitrogen 30 mg/dL (9-23) Creatinine 0.57 mg/dL (0.550-1.02) Glomerular Filtration Rate Calc 89 mL/min (>90) BUN/Creatinine Ratio 52.6 (10.0-20.0) Serum Glucose 121 mg/dL (74-106) Calcium Level 9.2 mg/dL (8.7-10.4) Urine Color Brown (Yellow) Urine Clarity Ex.turbid (Clear) Urine pH 7.5 (5.0-9.0) Urine Specific [place] 1.015 (1.001-1.035) Urine Protein 1+ (Negative) Urine Ketones Negative (Negative) Urine Blood 2+ /uL (Negative) Urine Nitrite Negative (Negative) Urine Bilirubin Negative (Negative) Urine Urobilinogen Normal mg/dL (Negative) Urine Leukocyte Esterase 1+ /uL (Negative) Urine RBC <1 /hpf (0 - 4) Urine WBC None seen /hpf (0 - 5) Urine Squamous Epithelial Cells None seen /hpf (<5) Urine Bacteria None seen /hpf (None Seen) Urine Glucose Normal mg/dL (Normal) Urine Opiates Screen Pos (NEGATIVE) Urine Fentanyl Screen Neg (NEGATIVE) Urine Barbiturates Screen Neg (NEGATIVE) Urine Phencyclidine Screen Neg (NEGATIVE) Urine Amphetamines Screen Neg (NEGATIVE) Urine Benzodiazepines Screen Neg (NEGATIVE) Urine Cocaine Screen Neg (NEGATIVE) Urine Cannabinoids Screen Neg (NEGATIVE) Total Bilirubin 0.4 mg/dL (0.2-1.0) Aspartate Amino Transferase (AST) 69 U/L (13-40) Alanine Aminotransferase (ALT) 34 U/L (7-40) Alkaline Phosphatase 901 U/L (46-116) Total Protein 6.4 g/dL (5.7-8.2) Albumin 4.0 g/dL (3.2-4.8) Carcinoembryonic Antigen 1.67 ng/mL (<=5.0) Plasma/Serum Blood Alcohol 6.1 mg/dL (<10) Other Laboratory Tests 02/25/24 05:07 Brief Hx & Hospital Course: Martha Jimenez is a 83-year-old female with past medical history of hypertension, CKD, ND over 15 years ago, skin cancer on her left leg that was removed 2 years ago, cholecystectomy, and tonsillectomy who presents to the ED for generalized weakness. Patient reports that that she is unable to walk and that she has progressively gotten weaker over the last several months. She also reports that she was seeing her primary and they advised her to come into the ER for evaluation. Patient also reports that she has not been well for the last 2 days and she has not been drinking any fluids. Patient also reports that she had an oncologist at [place] but no longer seeing one. Patient was diagnosed with Bladder cancer with bone mets. Discussed goals of care with the patient and family, patient does not want interventions, wishes to be discharged home with Hospice services. Notably, patient also was mildly short of breath and coarse breath sounds. As patient is mostly bed bound, possibly patient has aspirated, will treat with Doxycycline with hospice. Patient wishes to be discharged home today Condition at Discharge: Poor Final Diagnosis/Problems List # Possible aspiration PNA? 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 Patient was counseled about treatment plan, medications, possible side effects, patientverbalized understanding. All questions were answered to the best of my ability. This discharge took greater then 30 minutes in planning, reviewing documentation, counseling the patient, and discussing with other team members." ASSESSMENT ASSESSMENT Assessment Date of Service: Feb 25, 2024 Billing Provider: SRI LAZO MD Common Visit Codes: 10845-USG/OBS DISCH DAY >30min SRI LAZO MD Feb 25, 2024 10:24
[2024-02-25] MEDS: IPRATROPIUM BROM 0.5 MG/2.5ML INH SOL NEB SCH (10:44)
[2024-02-25] MEDS: ALBUTEROL SULF 2.5 MG/0.5ML(0.5%) NEB SOLN NEB SCH (10:45)
[2024-02-25] MEDS: DOXYCYCLINE 100 MG TAB/CAP PO ONE (12:30)
[2024-02-25] MEDS ORDERED: DOXYCYCLINE 100 MG TAB/CAP PO SCH (22:00)
[2024-02-27 09:32] LABS: Hepatitis A Ab IgM Negative; Hepatitis B Core IgM Negative (Negative); Hepatitis B Surface Antigen Negative (Negative); Hepatitis C Antibody Negative (Negative)
== END 2024-02-25 13:17 | disposition hospice, home (50) | DRG 542 ==
LOC: EDBD 09:37 → ER 09:37 → TELE 16:53 → TELE-CENTR 18:13 → CENTRAL 02-24 11:31
PROVIDERS: ATTEND Internal Medicine
DX: C79.51 Secondary malignant neoplasm of bone (principal); J69.0 Pneumonitis due to inhalation of food and vomit; G82.20 Paraplegia, unspecified; C67.9 Malignant neoplasm of bladder, unspecified; I12.9 Hypertensive chronic kidney disease with stage 1 through stage 4 chronic kidney disease, or unspecified chronic kidney disease; N18.9 Chronic kidney disease, unspecified; I95.9 Hypotension, unspecified; R33.9 Retention of urine, unspecified; E87.6 Hypokalemia; I25.10 Atherosclerotic heart disease of native coronary artery without angina pectoris; I25.2 Old myocardial infarction; Z87.891 Personal history of nicotine dependence; Z90.49 Acquired absence of other specified parts of digestive tract; Z85.828 Personal history of other malignant neoplasm of skin
CPT/HCPCS: 36415; 74176; 76775; 80048; 80053; 80074; 80307; 80320; 81001; 82378; 82962; 85025; 94640; 96360; 99291; G0378; J1100